=== PATIENT | male | born 2000 | race Caucasian/White ===

== ENCOUNTER 2019-04-11 14:15 | Emergency (ER) | payer OTHER ==
[~2019-04-11] VITALS: Ht 185.4 cm; Wt 70.5 kg
[2019-04-11 14:20] VITALS: TEMP 97.9
[2019-04-11 16:11] LABS: MUCOUS Present /lpf; PH 6 (5-8); SQUAMOUS EPITHELIAL None Seen /hpf; URINE APPEARANCE Clear; URINE BACTERIA None Seen /hpf; URINE BILIRUBIN Negative (NEGATIVE); URINE BLOOD 2+ (NEGATIVE); URINE COLOR Yellow; URINE GLUCOSE Negative (NEGATIVE); URINE KETONE Negative (NEGATIVE); URINE LEUKOCYTE ESTERASE Negative (NEGATIVE); URINE NITRATE Negative (NEGATIVE); URINE PROTEIN(semi-quant) Negative (NEGATIVE); URINE RBC 20-50 /hpf; URINE UROBILINOGEN Negative (NEGATIVE); URINE WBC 0-2 /hpf
[2019-04-11 16:26] LABS: COLLECTION METHOD CLEAN CATCH
[2019-04-11] MEDS ORDERED: NORCO 325 MG-51 TAB PO (16:50)
[2019-04-11] MEDS ORDERED: CEPHALEXIN500 M1 PO (16:50)
[2019-04-11 17:09] VITALS: BP 128/68; PULSE 82
== END 2019-04-11 17:09 | disposition home or self-care (01) ==
LOC: COL.ER 14:15
PROVIDERS: Emergency Medicine
DX: S30.22XA Contusion of scrotum and testes, initial encounter (principal); F17.210 Nicotine dependence, cigarettes, uncomplicated; W22.8XXA Striking against or struck by other objects, initial encounter; Y93.51 Activity, roller skating (inline) and skateboarding
CPT/HCPCS: J3010

== ENCOUNTER 2020-06-02 03:52 | Emergency (ER) | payer OTHER ==
[~2020-06-02] VITALS: Ht 182.9 cm; Wt 70.5 kg
[~2020-06-02 03:52] MED LIST: CEPHALEXIN500 M1 PO; NORCO 325 MG-51 TAB PO
[2020-06-02 04:00] VITALS: TEMP 97.4
[2020-06-02] MEDS ORDERED: ALBUTEROL0.83 MG/ML IH (04:02)
[2020-06-02] MEDS ORDERED: VENTOLIN0.09 MG IH (04:02)
[2020-06-02 04:27] VITALS: BP 139/87; PULSE 72
== END 2020-06-02 04:27 | disposition home or self-care (01) ==
LOC: COL.ER 03:52
DX: J45.901 Unspecified asthma with (acute) exacerbation (principal)

== ENCOUNTER 2020-11-28 19:06 | Emergency (ER) | payer SELFPAY ==
[~2020-11-28] VITALS: Ht 188 cm; Wt 70.5 kg
[~2020-11-28 19:06] MED LIST changes: +ALBUTEROL0.83 MG/ML IH; +VENTOLIN0.09 MG IH
[2020-11-28 19:21] VITALS: TEMP 97.9
[2020-11-29] MEDS ORDERED: ANTIVERT 25MG25 MG PO (00:02)
[2020-11-29 00:12] VITALS: BP 119/77; PULSE 58
== END 2020-11-29 00:21 | disposition home or self-care (01) ==
LOC: COL.ER 19:06
DX: R42 Dizziness and giddiness (principal); F17.290 Nicotine dependence, other tobacco product, uncomplicated